=== PATIENT | female | born 1990 ===

== ENCOUNTER 2017-11-19 18:13 | Emergency (ER) | payer BC ==
--- OUTSIDE RECORDS SUMMARY | 2017-11-19 18:21 | XMS REPORT ---
:1990 External Reference #:[id number] Author Organization [facility] Address [address] [place] [address] Phone [phone] Care Team Providers Name Role Phone Murray Desouza MD Care Team Information Business Performance Advisor Unavailable Murray Desouza MD Primary Care Physician Unavailable Payers Type Date Identification Numbers Payment Provider Subscriber Commercial Effective: Policy Number: Out Of Area JR Cox 2017 [id number] PayID: [id number] [id number] [place] [address] Problems Description No Information Family History Date Family Member(s) Problem(s) Comments Father 61 Mother 63 First Brother 21 Second Brother 47 First Sister 30 Social History Type Date Description Comments Marital Status Single Lives With Alone 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[employer] Cigarette Use Occasionally Smokes Cigarettes a cigarette a few times a year ETOH Use Occasionally consumes alcohol 1-2 drinks on weekend Recreational Drug Use Denies Drug Use Daily Caffeine Consumes on average 2 cups of coffee per day Exercise Type/Frequency Exercises regularly hikes, walks, bikes Allergies, Adverse Reactions, Alerts Date Description Reaction Status Severity Comments 11/04/2017 NKDA active Medications Medication Date Status Form Strength Qnty SIG Indications Ordering Provider Introvale 11/05/19 Active Tablets 0.15-0.03mg 3packs once daily Maria Esther [address] [place], control Afnp-C Introvale Hx once daily Unknown 00 - 11/05/19 control 18 Vital Signs Date Vital Result Comment 11/04/2017 BP Systolic 110 mmHg BP Diastolic 74 mmHg Heart Rate 86 /min Body Temperature 99.1 F Respiratory Rate 16 /min Height 66 inches 5'6" Weight 133.25 lb BMI (Body Mass Index) 21.5 kg/m2 Right Visual Acuity Distance 20/40 Left Visual Acuity Distance 20/40 Results Description No Information Procedures Description No Information Plan of Care Future Appointment(s):12/02/2017 10:45 am - Daisy Siu at [facility] [id number]/04/2017 - Ramana Siu-[id number] Localized enlarged lymph [id number] [facility]FP (current) use of hormonal contraceptivesFollow up: Followup:. (Follow up)N92.6 Irregular menstruation, unspecifiedAllNew Medication :Introvale 0.15-0.03 mgComments:~B_~U_Medication Management~b_~u_ Patient Understands medications she's taking? Yes No Are there Barriers to Adherence? Yes No Has the patient been asked about herbal supplements and therapies, and OTC meds? Yes No ~B_~U_Care Plan~b_~u_1. Patient has been queried about patient's goals/preferences and functional/ lifestyle goals at relevant visits. If relevant, describe: na2. Treatment goals as explained to the patient: above3. Are there barriers to meeting treatment goals? Yes No If Yes, please describe:4. Self-Management goals as described to the patient:Yes No The lymphnode is not a cause for concern , may have enlarged a bit because of the insect bitesobserve for now return for concrete mixer
--- NOTE | 2017-11-19 19:18 | UC ---
Respiratory Complaint HPI - HPI Summary HPI Summary: 26 y/o female presents to the urgent care c/o B/L ear pain w/ fullness and muffled since yesterday. Pt reports symptoms started 1.5 weeks ago w. nasal congestion and clear discharge, then symptoms worsen and now she is having sinus pain and nasal d/c is green. pt has Hx of seasonal allergies and recurrent sinusitis. She has been taking Sudafed, Ciera D and other OTC decongestant w/o any improvement. Pain is 6/10 associated w/ mild subjective fever last night and cough w/ a lot of PND today. Pt denies SOB, chest pain, abdominal pain, N/V/D. - History of Current Complaint Chief Complaint: UCRespiratory Stated Complaint: URI Time Seen by Provider: 11/19/17 19:16 Hx Obtained From: Patient Hx Last Menstrual Period: 3 months ago per control ?: No Onset/Duration: Gradual Onset, Lasting Weeks - 1.5 weeks, Still Present, Worse Since - 2 days Timing: Constant Severity Initially: Mild Severity Currently: Moderate Pain Intensity: 6 Pain Scale Used: 0-10 Numeric Character: Cough: Nonproductive Aggravating Factors: Allergens, Recumbent Position Alleviating Factors: OTC Meds Associated Signs And Symptoms: Positive: Fever, URI, Nasal Congestion, Sinus Discomfort Related History: Seasonal Allergies - Risk Factors Pulmonary Embolism Risk Factors: Negative Cardiac Risk Factors: Negative Pseudomonas Risk Factors: Negative Tuberculosis Risk Factors: Negative - Allergies/Home Medications Allergies/Adverse Reactions: Allergies Allergy/AdvReac Type Severity Reaction Status Date / Time No Known Allergies Allergy Verified 11/19/17 18:35 Home Medications: Home Medications D-Methorphan/PE/Acetaminophen [Vicks Dayquil Liquid] 1 liq PO 11/19/17 [History] Fexofenadine/Pseudoephedrine [Ciera-D 24 Hour Tablet] 1 each PO 11/19/17 [ History] Ibuprofen 200 mg PO 11/19/17 [History] Levonorgestrel-Ethin Estradiol [Introvale 0.15-0.03 mg Tablet] 1 tab PO [History] PMH/Surg Hx/FS Hx/Imm Hx Previously Healthy: Yes Other Respiratory History: recurrent sinus infections - Surgical History Surgical History: Yes Surgery Procedure, Year, and Place: deviated septum repair, polups and adnoids - Family History Known Family History: Positive: Hypertension - Social History Occupation: Employed Full-time Lives: With Family Alcohol Use: Occasionally Substance Use Type: Marijuana Substance Use Comment - Amount & Last Used: once a month Smoking Status (MU): Never Smoked Tobacco Review of Systems Constitutional: Fever Skin: Negative Eyes: Negative ENT: Ear Ache - B/L ear pain and fullness, Nasal Discharge, Sinus Congestion, Sinus Pain/Tenderness Respiratory: Cough Cardiovascular: Negative Gastrointestinal: Negative Genitourinary: Negative Motor: Negative Neurovascular: Negative Musculoskeletal: Negative Neurological: Negative Psychological: Negative Is Patient Immunocompromised?: No All Other Systems Reviewed And Are Negative: Yes Physical Exam - Summary Physical Exam Summary: Vitals: reviewed General: Well developed, well-nourished female patient with NAD. Head and face: Normocephalic and atraumatic, Positive tenderness over the frontal and maxillary sinuses.. Eyes: PERRLA, EOMI x 2. Normal conjunctiva. No eye discharge. ENT: B/L external ear canals clear, B?L TM;s injected w/ erythema and purulent yellowish discharge. Nose: edematous and erythematous nasal mucosa with with yellowish discharge and erythematous mucosa. Pharynx with erythema, no exudate. Moderate yellowish PND Neck: Supple, no JVD, no carotid bruits and no lymphadenopathy. Lungs: clear, no rales, no rhonchi, no wheezes. CVS: RRR, S1 and S2 present no murmurs or gallops appreciated. Abdomen: soft nontender with positive bowel sounds. Extremities: no edema noted. Neuro: WNL. Skin: warm and dry Triage Information Reviewed: Yes Vital Signs: Initial Vital Signs Temp 99.0 F 11/19/17 18:31 Pulse 116 11/19/17 18:31 Resp 18 11/19/17 18:31 BP 133/70 11/19/17 18:31 Pulse Ox 100 11/19/17 18:31 UC Diagnostic Evaluation - Laboratory O2 Sat by Pulse Oximetry: 100 Respiratory Course/Dx - Course Course Of Treatment: 26 y/o female presents to the urgent care c/o B/L ear pain w/ fullness and muffled since yesterday. Pt reports symptoms started 1.5 weeks ago w. nasal congestion and clear discharge, then symptoms worsen and now she is having sinus pain and nasal d/c is green. pt has Hx of seasonal allergies and recurrent sinusitis. She has been taking Sudafed, Ciera D and other OTC decongestant w/o any improvement. Pain is 6/10 associated w/ mild subjective fever last night and cough w/ a lot of PND today. Pt denies SOB, chest pain, abdominal pain, N/V/D. Hx obtained. Pt w/ B/L otitis media and acute bacterial sinusitis on examination. Pt Rx Augmentin PO and flonase nasal spray. Advised to continue w/ only Ciera D and not to mix different decongestants at the same time. Discharge instructions explained to Pt. Advised to Return to the clinic or PCP if symptoms do not improve.Pt understood and agreed with plan of care. --- - Differential Dx/Diagnosis Differential Diagnosis/HQI/PQRI: Bronchitis, Influenza, Laryngitis, Sinusitis, Other - otitis media, otitis externa Provider Diagnoses: 1-Acute bacterial sinusitis. 2-Acute B/L otitis media - Physician Notification/Consults Instructed by Provider To: MD Will See In ED Discharge - Sign-Out/Discharge Documenting (check all that apply): Patient Departure - D/C home - Discharge Plan Condition: Stable Disposition: HOME Prescriptions: Amoxicillin/Clavulanate TAB* [Augmentin TAB 875*] 875 mg PO BID #20 tab Fluticasone NASAL SPRAY 50MCG* [Flonase NASAL SPRAY 50MCG*] 2 spray BOTH NARES DAILY #1 btl Patient Education Materials: Sinusitis (ED), Ear Infection (ED) Forms: *Work Release Referrals: [facility] [place] [facility] [Outside] - 3 Days Additional Instructions: 1- Please increase fluid intake and rest. take full course of antibiotic to avoid resistance 2-Use Flonase as directed to help drain fluid. Also buy saline drops to clear sinuses 3-Continue taking Alegra D PO to alleviates sinus congestion 4- continue taking Ibuprofen PO q6-8hrs after meals for fever and pain 4-Return to the clinic or PCP in 3 days if symptoms do not improve for further management and treatment Per institutional requirements, I have reviewed the chart, however, I was not consulted specifically or made aware of this patient by the above midlevel provider. I did not personally evaluate, interact with , or disposition this patient. - Billing Disposition and Condition Condition: STABLE Disposition: Home
== END 2017-11-19 19:46 | disposition home or self-care (01) ==
LOC: UCEAST 18:13
DX: H66.93 Otitis media, unspecified, bilateral (principal); J01.90 Acute sinusitis, unspecified; B96.89 Other specified bacterial agents as the cause of diseases classified elsewhere
CPT/HCPCS: 99202; G0463

== ENCOUNTER 2017-11-24 10:52 | Emergency (ER) | payer BC ==
[2017-11-24 11:07] VITALS: BP 131/64
--- NOTE | 2017-11-24 13:04 | UC ---
Ear Complaint HPI - HPI Summary HPI Summary: 26 y/o female presents to the urgent care c/o B/L ear pressure w/ nasal congestion and clear nasal discharge. Pr reports she was recently here on 2017 and Dx w/ bacterial sinusitis and Rx Augmentin PO. Symptoms improved x 3 days, but then worsen w/ a lot of nasal congestion, drainage and B/L ear pressure. Pt denies fever, SALMON, dizziness, SOB, cough, chest pain,abdominal pain , N/V/D. - History of Current Complaint Chief Complaint: UCEar Stated Complaint: BOTH EARS COMPLAINT Time Seen by Provider: 11/24/17 12:58 Hx Obtained From: Patient Hx Last Menstrual Period: 91 day pack ?: No Onset/Duration: Gradual Onset, Lasting Weeks - 2 weeks, Worse Since - 2 days Severity Initially: Mild Severity Currently: Moderate Pain Intensity: 8 - sinus pain Pain Scale Used: 0-10 Numeric Aggravating Factors: Other - abeing outside Alleviating Factors: OTC Meds Associated Signs/Symptoms: Positive: Discharge - clear, URI Symptoms Related History: Seasonal Allergies - Allergies/Home Medications Allergies/Adverse Reactions: Allergies Allergy/AdvReac Type Severity Reaction Status Date / Time No Known Allergies Allergy Verified 11/24/17 11:07 PMH/Surg Hx/FS Hx/Imm Hx Previously Healthy: Yes - Pt denies PMHX - Surgical History Surgical History: Yes Surgery Procedure, Year, and Place: deviated septum repair, polups and adnoids - Family History Known Family History: Positive: Hypertension - Social History Occupation: Employed Full-time Lives: With Family Alcohol Use: Occasionally Substance Use Type: Marijuana Substance Use Comment - Amount & Last Used: once a month Smoking Status (MU): Never Smoked Tobacco Review of Systems Constitutional: Negative Skin: Negative Eyes: Negative ENT: Ear Ache - B/L ear pressure, Nasal Discharge - clear, Sinus Congestion, Sinus Pain/Tenderness Respiratory: Negative Cardiovascular: Negative Gastrointestinal: Negative Genitourinary: Negative Motor: Negative Neurovascular: Negative Musculoskeletal: Negative Neurological: Negative Psychological: Negative Is Patient Immunocompromised?: No All Other Systems Reviewed And Are Negative: Yes Physical Exam - Summary Physical Exam Summary: Vitals: reviewed General: Well developed, well-nourished female patient with NAD. Head and face: Normocephalic and atraumatic, Positive tenderness over the frontal and maxillary sinuses.. Eyes: PERRLA, EOMI x 2. Normal conjunctiva. No eye discharge. ENT: Ears and TM with normal limits. Nose: edematous and erythematous nasal mucosa with with clear discharge and erythematous mucosa. Pharynx with erythema, no exudate. +PND clear Neck: Supple, no JVD, no carotid bruits and no lymphadenopathy. Lungs: clear, no rales, no rhonchi, no wheezes. CVS: RRR, S1 and S2 present no murmurs or gallops appreciated. Abdomen: soft nontender with positive bowel sounds. Extremities: no edema noted. Neuro: WNL. Skin: warm and dry Triage Information Reviewed: Yes Vital Signs: Initial Vital Signs Temp 98 F 11/24/17 11:04 Pulse 92 11/24/17 11:04 Resp 17 11/24/17 11:04 BP 131/64 11/24/17 11:04 Pulse Ox 100 11/24/17 11:04 Ear Complaint Course/Dx - Course Course Of Treatment: 26 y/o female presents to the urgent care c/o B/L ear pressure w/ nasal congestion and clear nasal discharge. Pr reports she was recently here on 11/19/2017 and Dx w/ bacterial sinusitis and Rx Augmentin PO. Symptoms improved x 3 days, but then worsen w/ a lot of nasal congestion, drainage and B/L ear pressure. Pt denies fever, SALMON, dizziness, SOB, cough, chest pain,abdominal pain, N/V/D. Hx obtained. Pt's symptoms most likely due to an constant environmental allergent. Pt w. Acute rhinosinusitis on examination. Pt Advised to continue w/ Augmentin PO and flonase nasal srapy and Rx Loratadine PO to alleviate symptoms. Advised to wash hands and face after being outside, clean carpets, and AC filter. Pt given an ENT referral or f/u w/ PCP for allergen testing if not improvement of symptoms for further management. Pt understood and agreed w/ plan of care. - Differential Dx/Diagnosis Differential Diagnosis/HQI/PQRI: Cerumen Impaction, Otitis Externa, Otitis Media , URI, Other - sinusitis Provider Diagnoses: 1- Acute Rhinosinusitis Discharge - Sign-Out/Discharge Documenting (check all that apply): Patient Departure - D/C home - Discharge Plan Condition: Stable Disposition: HOME Prescriptions: Fexofenadine/Pseudoephedrine [Ciera-D 24 Hour Tablet] 1 each PO Q24HR #30 tab.er.24h Patient Education Materials: Sinusitis (ED) Referrals: [facility] [place] [facility] [Outside] Chris Rebollar MD [Medical Doctor] - 3 Days Additional Instructions: 1- Please increase fluid intake and rest. continue taking Augmenting PO full course of antibiotic to avoid resistance 2-Contineu w/ Flonase as directed to help drain fluid. Also buy saline drops to clear sinuses 3-Take Ciera D PO to alleviates sinus congestion. Avoid allergens 4- if not improvement of symptoms please Flu w/ ENT DR Rebollar for further management and treatment - Billing Disposition and Condition Condition: STABLE Disposition: Home
== END 2017-11-24 13:22 | disposition home or self-care (01) ==
LOC: UCEAST 10:52
DX: J01.90 Acute sinusitis, unspecified (principal); H93.8X3 Other specified disorders of ear, bilateral
CPT/HCPCS: 99212; G0463